=== PATIENT | male | born 1955 | race Caucasian/White ===

== ENCOUNTER 2024-08-16 12:11 | Outpatient (CLI) | payer MEDICARE, SELFPAY ==
--- NOTE | ~2024-08-16 | CT_ITS ---
CT Scan of the Chest without Contrast: Clinical Indication: Lung cancer screening, nicotine dependence Technique: Contiguous sections were acquired throughout the chest without intravenous contrast. Dose reduction technique was used on this scan by utilizing automated exposure control and iterative recon struction technique. The dose-length product (DLP) was 216.42 mGy-cm. Findings: There is no evidence of any significant mediastinal, hilar or axillary lymphadenopathy. Calcified rig ht hilar lymph nodes are present. The mediastinal soft tissues otherwise appear normal. There is no evidence of pleural or pericardial effusion. Mild emphysema present. There is 3 mm nodule superior segment right lower lobe (axial image 54). Images through the upper abdomen reveal probable scattered hepatic cysts. Calcified splenic granuloma s are present. Impression: Lung RADS 2: Benign appearance. 12 month follow-up screening CT advised. Reviewed, dictated and finalized at [facility]. [employer] Impression: Lung RADS 2: Benign appearance. 12 month follow-up screening CT advised.
== END 2024-08-16 12:12 | disposition home or self-care (01) ==
PROVIDERS: PCP Nurse Practitioner Family; Visit Provider Nurse Practitioner Family
DX: Z12.2 Encounter for screening for malignant neoplasm of respiratory organs (principal); Z87.891 Personal history of nicotine dependence
CPT/HCPCS: 71271

== ENCOUNTER 2024-11-11 00:49 | Day surgery (SDC) | payer MEDICARE, SELFPAY ==
[2024-10-29 09:51] VITALS: BMI 30.7
[2024-11-11 09:01] VITALS: BP 136/82; PULSE 89; RESP 17; TEMP 36.4; O2SAT 96; BMI 30.6
[2024-11-11] MEDS: LACTATED RINGERS 1,000 ML 150 ML IV CONT (09:08)
--- NOTE | 2024-11-11 09:40 | WPDANESEPPF ---
Anes - Initial Pre Proc Eval Procedure: Operation Date: 11/11/24 10:30 Proposed Procedures p Screening Colonoscopy - Meng Asencio MD Date/Time: 11/11/24 09:40 Surgeon: Meng Asencio MD Pre Op Diagnosis: screening colon Patient Data Age: 69 Gender: M Height: 1.8 m Weight: 99.6 kg Last Vital Signs Temp 36.4 C 11/11/24 09:01 Pulse 89 11/11/24 09:01 Resp 17 11/11/24 09:01 BP 136/82 11/11/24 09:01 Pulse Ox 96 11/11/24 09:01 O2 Del Method Room Air 11/11/24 09:01 Allergies Allergy/AdvReac Type Severity Reaction Status Date / Time No Known Allergies Allergy Unknown Verified 11/11/24 09:00 Home Medications ?Medication ?Instructions ?Recorded ?Confirmed ?Type albuterol sulfate 90 mcg/actuation 2 inh inhalation Q4H PRN shortness 07/22/24 10/29/24 Rx aerosol inhaler of breath or wheezing #8.5 grams budesonide 160 mcg-glycopyr 9 160-9-4.8 mcg/actuation Hfa 08/18/24 10/29/24 Sample mcg-formot 4.8 mcg/actuation HFA Aerosol Inhaler#2 Samples inhaler (Breztri Aerosphere) budesonide 160 mcg-glycopyr 9 2 inh inhalation QAM AND QPM #10.7 09/25/24 10/29/24 Rx mcg-formot 4.8 mcg/actuation HFA grams inhaler (Breztri Aerosphere) vibegron 75 mg tablet (Gemtesa) 75 mg PO DAILY 09/25/24 10/29/24 History fluticasone propionate 50 2 spray intranasal DAILY #16 mL 10/21/24 10/29/24 Rx mcg/actuation nasal spray,suspension (Flonase Allergy Relief) pseudoephedrine HCl 30 mg tablet 30 mg PO Q4-6H PRN nasal 10/21/24 10/29/24 Rx (Nasal Decongestant congestion #30 tabs (pseudoephedrine)) Results Review: All pre-operative results and documents have been reviewed as part of the pre-operative evaluation. [facility] Past Medical History Medical History Prostate cancer Heart problem Surgical History Surgical History H/O rotator cuff surgery right H/O prostatectomy Family History Family History Sibling Family history of obesity Patient's brother is in good health Father Heart disease Other Diabetes mellitus Family history of arthritis Family history of heart disease in male family member before age 55 Family history of malignant neoplasm Social History Social History Smoking packs per day: 1 Smoking cigarettes per day: 20.0 Years smoked: 36 Smoking pack-years: 36.00 Smoking status: Former smoker Tobacco type: cigarettes Alcohol intake: former Substance use: current Substance use type: marijuana Other substance usage details: smokes marijuana once a week Do You Feel Safe in your Home?: Yes Lack of Transportation: No Lack of Food: Never True Current Housing: I Have Housing Concerned About Future Housing: No Difficulty Paying Gas/Electric Bills: No Difficulty Paying for Meds: No Currently Unemployed: No Education: High School Diploma/GED Difficulty w/ Childcare or Family Care: No Living arrangements: with family Occupation/Education: retired Gender identity (if verbalized by the patient): Male Sexual Orientation (if Verbalized by the Patient): Straight or Heterosexual Spiritual care concerns: No Agree to blood products: Yes Anes - Eval Final PreProcedure Day of Procedure 11/11/24 09:40 Patient weight: obese Heart: regular rate and rhythm Lungs: clear to auscultation Airway: Mallampati scale class II Neurological: alert and oriented Last oral intake: >/= 8 hours ASA classification: III Emergent: no Anesthetic plan: proceed Anesthesia type and monitoring: general GIVS and standard monitoring Results Review: All pre-operative results and documents have been reviewed as part of the pre-operative evaluation. Informed Consent: The patient's anesthetic plan and its attendant risks and benefits were discussed with the patient/family/POA. Questions were solicited and answers provided to the satisfaction of the patient/family/POA.
--- NOTE | 2024-11-11 10:11 | PM.IMHP ---
H&P: HPI History of Present Illness Date/Time: 11/11/24 10:11 Chief Complaint: Screening colonoscopy Narrative: This is the patient's 3rd colonoscopy. the last 1 was around 10 years ago. There are no GI symptoms and there is no family history of colorectal cancer. Review of Systems Review of Systems: All systems reviewed & are unremarkable except as noted in HPI and below PMFSH Past Medical History Medical History Prostate cancer Heart problem Surgical History Surgical History H/O rotator cuff surgery right H/O prostatectomy Family History Family History Sibling Family history of obesity Patient's brother is in good health Father Heart disease Other Diabetes mellitus Family history of arthritis Family history of heart disease in male family member before age 55 Family history of malignant neoplasm Social History Social History Smoking packs per day: 1 Smoking cigarettes per day: 20.0 Years smoked: 36 Smoking pack-years: 36.00 Smoking status: Former smoker Tobacco type: cigarettes Alcohol intake: former Substance use: current Substance use type: marijuana Other substance usage details: smokes marijuana once a week Do You Feel Safe in your Home?: Yes Lack of Transportation: No Lack of Food: Never True Current Housing: I Have Housing Concerned About Future Housing: No Difficulty Paying Gas/Electric Bills: No Difficulty Paying for Meds: No Currently Unemployed: No Education: High School Diploma/GED Difficulty w/ Childcare or Family Care: No Living arrangements: with family Occupation/Education: retired Gender identity (if verbalized by the patient): Male Sexual Orientation (if Verbalized by the Patient): Straight or Heterosexual Spiritual care concerns: No Agree to blood products: Yes Meds Home Medications and Allergies Home Medications ?Medication ?Instructions ?Recorded ?Confirmed ?Type albuterol sulfate 90 mcg/actuation 2 inh inhalation Q4H PRN shortness 07/22/24 10/29/24 Rx aerosol inhaler of breath or wheezing #8.5 grams budesonide 160 mcg-glycopyr 9 160-9-4.8 mcg/actuation Hfa 08/18/24 10/29/24 Sample mcg-formot 4.8 mcg/actuation HFA Aerosol Inhaler#2 Samples inhaler (Breztri Aerosphere) budesonide 160 mcg-glycopyr 9 2 inh inhalation QAM AND QPM #10.7 09/25/24 10/29/24 Rx mcg-formot 4.8 mcg/actuation HFA grams inhaler (Breztri Aerosphere) vibegron 75 mg tablet (Gemtesa) 75 mg PO DAILY 09/25/24 10/29/24 History fluticasone propionate 50 2 spray intranasal DAILY #16 mL 10/21/24 10/29/24 Rx mcg/actuation nasal spray,suspension (Flonase Allergy Relief) pseudoephedrine HCl 30 mg tablet 30 mg PO Q4-6H PRN nasal 10/21/24 10/29/24 Rx (Nasal Decongestant congestion #30 tabs (pseudoephedrine)) Allergies Allergy/AdvReac Type Severity Reaction Status Date / Time No Known Allergies Allergy Unknown Verified 11/11/24 09:00 Vital Signs Vital Signs - 24 hr 11/11/24 09:01 Temperature 97.6 F Pulse Rate 89 Respiratory Rate 17 Blood Pressure 136/82 Pulse Oximetry 96 Oxygen Delivery Room Air Exam Const: General: cooperative and healthy appearing Resp: Effort & Inspection: normal respiratory effort and able to speak in complete sentences Auscultation: clear to auscultation bilaterally Cardio: Rate: regular rate Rhythm: regular rhythm GI: Inspection: normal to inspection GI Palp: No No hepatosplenomegaly present Auscultation: normal bowel sounds Rectal Exam: deferred Skin: General skin exam: normal color Psych: Appearance: grossly normal Mental Status: mental status grossly normal Assessment and Plan Assessment and plan (1) Encounter for screening colonoscopy: Code(s): Z12.11 - Encounter for screening for malignant neoplasm of colon Status: Acute Assessment and Plan: The patient is deemed a good candidate for the procedure. Consent signed. Will proceed.
[2024-11-11 10:51] VITALS: BP 119/67; PULSE 70; RESP 16; O2SAT 96
[2024-11-11 11:01] VITALS: BP 126/75; PULSE 68; RESP 15; O2SAT 95
[2024-11-11 11:11] VITALS: BP 132/73; PULSE 74; RESP 12; O2SAT 97
== END 2024-11-11 11:25 | disposition home or self-care (01) ==
PROVIDERS: PCP Nurse Practitioner Family; Visit Provider Internal Medicine Gastroenterology
PROC: 0DJD8ZZ Inspection of Lower Intestinal Tract, Via Natural or Artificial Opening Endoscopic (ICD-10-PCS; CPT 45378; principal; 2024-11-11 10:30)
DX: Z12.11 Encounter for screening for malignant neoplasm of colon (principal); D12.0 Benign neoplasm of cecum; K64.8 Other hemorrhoids; K57.30 Diverticulosis of large intestine without perforation or abscess without bleeding; F12.90 Cannabis use, unspecified, uncomplicated; E66.9 Obesity, unspecified; Z68.30 Body mass index [BMI] 30.0-30.9, adult; Z79.51 Long term (current) use of inhaled steroids; Z98.890 Other specified postprocedural states; Z85.46 Personal history of malignant neoplasm of prostate; Z87.891 Personal history of nicotine dependence; Z86.79 Personal history of other diseases of the circulatory system; Z80.9 Family history of malignant neoplasm, unspecified; Z82.49 Family history of ischemic heart disease and other diseases of the circulatory system
CPT/HCPCS: 45390; 88305; J2003; J2704; J7120

== ENCOUNTER 2025-06-03 02:32 | Day surgery (SDC) | payer MEDICARE, SELFPAY ==
[2025-05-19 13:50] VITALS: BMI 31.0
[2025-06-03 06:16] VITALS: BP 142/70; PULSE 72; RESP 18; TEMP 36.5; O2SAT 96; BMI 31.1
[2025-06-03] MEDS: LACTATED RINGERS 1,000 ML 150 ML IV CONT (06:30)
--- NOTE | 2025-06-03 07:10 | P.PNAN_ITS ---
Anes - Initial Pre Proc Eval Procedure: Operation Date: 06/03/25 07:30 Proposed Procedures p Diagnostic Colonoscopy - Meng Asencio MD Date/Time: 06/03/25 07:10 Surgeon: Meng Asencio MD Pre Op Diagnosis: Personal history of colon polyps, unspecified Patient Data Age: 69 Gender: M Height: 1.8 m Weight: 101.5 kg Last Vital Signs Temp 97.7 F 06/03/25 06:16 Pulse 72 06/03/25 06:16 Resp 18 06/03/25 06:16 BP 142/70 H 06/03/25 06:16 Pulse Ox 96 06/03/25 06:16 O2 Del Method Room Air 06/03/25 06:16 Allergies Allergy/AdvReac Type Severity Reaction Status Date / Time No Known Allergies Allergy Unknown Verified 06/03/25 06:20 Home Medications ?Medication ?Instructions ?Recorded ?Confirmed ?Type albuterol sulfate 90 mcg/actuation 2 inh inhalation Q4 H PRN shortness 07/22/24 05/19/25 Rx aerosol inhaler of breath or wheezing #8.5 g katerin budesonide 160 mcg-glycopyr 9 2 inh inhalation QAM AND QPM #10.7 09/25/24 06/03/25 Rx mcg-formot 4.8 mcg/actuation HFA grams inhaler ([facility] [employer]) blood sugar diagnostic (Blood #100 ea 04/02/25 Rx Glucose Test strips) blood-glucose meter (Blood Glucose #1 ea 04/02/2503/17 Rx Monitoring kit) lancets 31 gauge #100 ea 04/02/25 04/02/25 Rx rosuvastatin 20 mg tablet 20 mg PO DAILY #90 tabs 03/1706/03/25 Rx Patient hx anesthesia problems: none Family hx anesthesia problems: none Results Review: All pre-operative results and documents have been reviewed as part of the pre- operative evaluation. [facility] Past Medical History Medical History Mild emphysema Dyslipidemia Prediabetes Prostate cancer Heart problem Surgical History Surgical History H/O rotator cuff surgery right H/O prostatectomy Family History Family History Sibling Family history of obesity Patient's brother is in good health Father Heart disease Other Diabetes mellitus Family history of arthritis Family history of heart disease in male family member before age 55 Family history of malignant neoplasm Social History Social History Smoking packs per day: 1 Smoking cigarettes per day: 20.0 Years smoked: 35 Smoking pack-years: 35.00 Smoking status: Former smoker Tobacco type: cigarettes Alcohol intake: never Substance use: current Substance use type: does not use Other substance usage details: smokes marijuana once a week Do You Feel Safe in your Home?: Yes Lack of Transportation: No Lack of Food: Never True Current Housing: I Have Housing Concerned About Future Housing: No Difficulty Paying Gas/Electric Bills: No Difficulty Paying for Meds: No Currently Unemployed: No Education: High School Diploma/GED Difficulty w/ Childcare or Family Care: No Living arrangements: with family Occupation/Education: occupation Gender identity (if verbalized by the patient): Male Sexual Orientation (if Verbalized by the Patient): Straight or Heterosexual Spiritual care concerns: No Agree to blood products: Yes Anes - Eval Final PreProcedure Day of Procedure 06/03/25 07:10 Patient weight: obese Lungs: normal air movement Airway: Mallampati scale class II Neurological: alert and oriented Last oral intake: >/= 8 hours ASA classification: III Emergent: no Anesthetic plan: proceed Anesthesia type and monitoring: general GIVS and standard monitoring Results Review: All pre-operative results and documents have been reviewed as part of the pre- operative evaluation. BMI 31, hyperlipidemia, DM (borderline) ex smoker quit 2010 (30 pack years). Pt can walk 1-2 fos, no cp or sob. Informed Consent: The patient's anesthetic plan and its attendant risks and benefits were discussed with the patient/family/POA. Questions were solicited and answers provided to the satisfaction of the patient/family/POA.
--- NOTE | 2025-06-03 07:31 | PM.IMHP ---
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 He is here for follow-up colonoscopy. Review of Systems Review of Systems: All systems reviewed & are unremarkable except as noted in HPI and below PMFSH Past Medical History Medical History Mild emphysema Dyslipidemia Prediabetes Prostate cancer Heart problem Surgical History Surgical History H/O rotator cuff surgery right H/O prostatectomy Family History Family History Sibling Family history of obesity Patient's brother is in good health Father Heart disease Other Diabetes mellitus Family history of arthritis Family history of heart disease in male family member before age 55 Family history of malignant neoplasm Social History Social History (Updated 06/03/25 @ 07:13 by Rayray Gastelum DO) Smoking packs per day: 1 Smoking cigarettes per day: 20.0 Years smoked: 35 Smoking pack-years: 35.00 Smoking status: Former smoker Tobacco type: cigarettes Smoking end date: 09/17/10 Alcohol intake: never Substance use: current Substance use type: does not use Other substance usage details: smokes marijuana once a week Do You Feel Safe in your Home?: Yes Lack of Transportation: No Lack of Food: Never True Current Housing: I Have Housing Concerned About Future Housing: No Difficulty Paying Gas/Electric Bills: No Difficulty Paying for Meds: No Currently Unemployed: No Education: High School Diploma/GED Difficulty w/ Childcare or Family Care: No Living arrangements: with family Occupation/Education: occupation Gender identity (if verbalized by the patient): Male Sexual Orientation (if Verbalized by the Patient): Straight or Heterosexual Spiritual care concerns: No Agree to blood products: Yes Meds Home Medications and Allergies Home Medications ?Medication ?Instructions ?Recorded ?Confirmed ?Type albuterol sulfate 90 mcg/actuation 2 inh inhalation Q4H PRN shortness 07/22/24 05/19/25 Rx aerosol inhaler of breath or wheezing #8.5 grams budesonide 160 mcg-glycopyr 9 2 inh inhalation QAM AND QPM #10.7 09/25/24 06/03/25 Rx mcg-formot 4.8 mcg/actuation HFA grams inhaler (Breztri Anxaphere) blood sugar diagnostic (Blood #100 ea 04/02/25 Rx Glucose Test strips) blood-glucose meter (Blood Glucose #1 ea 04/02/25 04/02/25 Rx Monitoring kit) lancets 31 gauge #100 ea 04/02/25 04/02/25 Rx rosuvastatin 20 mg tablet 20 mg PO DAILY #90 tabs 04/02/25 06/03/25 Rx Allergies Allergy/AdvReac Type Severity Reaction Status Date / Time No Known Allergies Allergy Unknown Verified 06/03/25 06:20 Vital Signs Vital Signs - 24 hr 06/03/25 06:16 Temperature 97.7 F Pulse Rate 72 Respiratory Rate 18 Blood Pressure 142/70 H Pulse Oximetry 96 Oxygen Delivery Room Air Exam Const: General: cooperative and healthy appearing Resp: Effort & Inspection: normal respiratory effort and able to speak in complete sentences Auscultation: clear to auscultation bilaterally Cardio: Rate: regular rate Rhythm: regular rhythm GI: Inspection: normal to inspection GI Palp: No No hepatosplenomegaly present Auscultation: normal bowel sounds Rectal Exam: deferred Skin: General skin exam: normal color Psych: Appearance: grossly normal Mental Status: mental status grossly normal Assessment and Plan Assessment and plan (1) Hx of colonic polyp: Code(s): Z86.0100 - Personal history of colon polyps, unspecified Status: Acute Assessment and Plan: The patient is deemed a good candidate for the procedure. Consent signed. Will proceed.
--- NOTE | 2025-06-03 07:56 | S_PTH ---
PATIENT: Fox Escoto LOC: [facility] U#:[id number] AGE/SX: 69/M ROOM: RE06/03/[address]: Meng Asencio MD : 1955 BED: DIS: 06/03/2025 SPEC #: [id number] RECD: 06/03/25 10:18 STATUS: JOSE RESmith #: [id number] SUDARSHAN: 06/03/25 07:[address]: Meng Asencio DEPT: [facility] Surgical RECD BY: Daysi Aguilar ENTERED: 06/03/25 10:19 SP TYPE: Surgical OTHR DR: Hawa Butterfield, GLEN Tissues: A - Colon Polypectomy B - Colon Polypectomy C - Colon Polypectomy Procedures: Hematoxylin and Eosin Stain Gross and Microscopic Level 4
[2025-06-03 07:58] VITALS: BP 99/67; PULSE 63; RESP 16; O2SAT 96
[2025-06-03 08:08] VITALS: BP 114/75; PULSE 60; RESP 18; O2SAT 97
[2025-06-03 08:18] VITALS: BP 121/77; PULSE 60; RESP 20; O2SAT 97
--- NOTE | 2025-06-03 08:32 | SUR.OPER ---
Descending colon polyp not retrieved. Dr. Asencio notified.
== END 2025-06-03 08:26 | disposition home or self-care (01) ==
PROVIDERS: PCP Nurse Practitioner Family; Referring Provider Nurse Practitioner Family; Visit Provider Internal Medicine Gastroenterology
PROC: 0DJD8ZZ Inspection of Lower Intestinal Tract, Via Natural or Artificial Opening Endoscopic (ICD-10-PCS; CPT 45378; principal; 2025-06-03 07:30)
DX: Z12.11 Encounter for screening for malignant neoplasm of colon (principal); D12.3 Benign neoplasm of transverse colon; K63.5 Polyp of colon; F12.90 Cannabis use, unspecified, uncomplicated; Z87.891 Personal history of nicotine dependence; E66.9 Obesity, unspecified; Z68.31 Body mass index [BMI] 31.0-31.9, adult
CPT/HCPCS: 45385; 88305; J2003; J2704; J7120

== ENCOUNTER 2025-08-31 13:31 | Outpatient (CLI) | payer MEDICARE, SELFPAY ==
--- NOTE | ~2025-08-31 | CT_ITS ---
EXAMINATION:CT lung screening DATE: 08/31/2025 13:49 INDICATION: Screening TECHNIQUE: Computed tomography (CT) of the chest was performed without intravenous contrast. The dose-length product (DLP) was 189.11 mGy-cm. COMPARISON: August 16, 2024 FINDINGS: No new or suspicious lung nodules or masses present. The lungs are clear other than minimal atelectatic appearing changes. Heart size normal. No pericardial effusion or bulky lymphadenopathy. The bones appear intact. No acute process seen in the visualized portions of the upper abdomen. Partially visualized left renal cyst, extensive splenic granuloma, cholelithiasis, and numerous cystic lesions in the liver not clearly changed. IMPRESSION: 1. No new or suspicious lung nodules or masses. Lung RADS2. Recommend correlation with low-dose lung cancer screening chest CT in 12 months. 2. Other chronic findings as above. Reviewed, dictated and finalized at location [facility] [employer] IMPRESSION: 1. No new or suspicious lung nodules or masses. Lung RADS2. Recommend correlati on with low-dose lung cancer screening chest CT in 12 months. 2. Other chronic findings as above.
== END 2025-08-31 13:32 | disposition home or self-care (01) ==
PROVIDERS: PCP Nurse Practitioner Family; Visit Provider Nurse Practitioner Family
DX: Z12.2 Encounter for screening for malignant neoplasm of respiratory organs (principal); Z87.891 Personal history of nicotine dependence
CPT/HCPCS: 71271